=== PATIENT | female | born 1990 | race Asian ===

== ENCOUNTER → 2016-09-13 09:23 | Day surgery (SDC) | payer OTHER ==
--- NOTE | 2016-09-09 17:06 | HP ---
CC: Donis Chandler MD, at [facility]; [facility] PREOPERATIVE HISTORY AND PHYSICAL: DATE OF ADMISSION: 09/13/16 This patient is scheduled for same day surgery admission by Dr. Chandler on 09/13/16. ATTENDING SURGEON: Donis Chandler MD (dictated by Marilyn Flores NP). CHIEF COMPLAINT: Right breast lump and right breast skin lesion. 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 She is referred for both a right breast lump and a right breast skin lesion. The patient n otes that she initially found the breast lump in November 2015 while she was showering. She noted that t he mass was tender, but it has not changed significantly in size. She was seen by a breast surgeon in [place] and had an ultrasound at that time and was told it was a benign finding. She did not hav e a biopsy at that time. There was a recommendation for excision at that time. Currently, the mass has become more tender and she wishes to have it removed at this time. The patient also noted a sk in lesion on the right nipple areolar border at 3 o'clock which is not painful or itchy; however, sh e does sometimes pick at it and that has led to bleeding. She denies any personal or family history of breast cyst or breast cancer. There is no family history of ovarian cancer. The patient report s regular menstrual periods and previously used oral contraceptives for several months. The patient denies any nipple discharge. Dr. Chandler has examined the patient and on palpation of the right gita ast, there is an irregular, firm, mildly tender, 2 x 2 cm mobile mass at the 3 o'clock position. The re is also a raised skin lesion approximately 2 mm in size on the nipple-areolar complex of the righ t breast at the [address] Chandler has discussed the findings with the patient and rec ommended fine needle aspiration of the right breast mass which was completed and revealed fibroadeno ma on pathology. Dr. Chandler has recommended excision of the right breast mass and excision of the skin lesion on the right breast as a same day surgery procedure and has described the nature of the procedure, the rationale for the procedure, the relevants risks, benefits, and alternatives and pinky myles I reviewed the expected postoperative care and recovery. The patient has had a chance to ask ques tions and stated that she understands the information and is satisfied with the answers given to her questions. She will sign surgical consent on the day of surgery. PAST MEDICAL HISTORY: Generally healthy, no acute or chronic conditions. No previous surgery. OB HISTORY: 0. Last Pap smear, November 2015. Last menstrual period, 08/12/16. MEDICATIONS: None currently. ALLERGIES: No known drug allergies. FAMILY HISTORY: Both of her parents are alive and well and living in [place]. Her mother underwent t reatment for rectal cancer. No known anesthesia reactions, bleeding tendencies, or clotting disorde rs. SOCIAL HISTORY: She is single, she is a buttermilk drier operator at [employer] in system [place]. She is a nonsmoker and denies the use of alcohol or other substances. REVIEW OF SYSTEMS: She denies any recent constitutional symptoms. She has a good appetite and her weight is stable. She denies any cardiovascular conditions or complaints. She denies any respirato ry conditions or complaints and is a nonsmoker. She denies any history of deep vein thrombosis or p ulmonary embolism. She denies any bleeding tendencies and has never received a blood transfusion. S he denies any gastrointestinal conditions or complaints. She denies any genitourinary conditions or complaints. She denies any musculoskeletal conditions or complaints and denies any neurologic cond itions or complaints. PHYSICAL EXAMINATION GENERAL SURVEY: The patient is a 25-year-old female, well developed, well nourished in no acute dis tress. VITAL SIGNS: Height 67 inches, weight 125 pounds, body mass index 19.6. Blood pressure 104/66, pul se 88 and regular, respiratory rate 16, temperature 98.2 tympanic. HEENT: Benign. NECK: Supple. No cervical lymphadenopathy. No supraclavicular lymphadenopathy. BACK: No CVA tenderness. LUNGS: Breath sounds bilaterally clear and equal. BREASTS: On palpation of the right breast, there is an irregular, firm, mildly tender 2 x 2 cm mobi le mass at the 3 o'clock position. There is also a raised skin lesion at the 3 o'clock position, ri ght breast. There is no surrounding erythema, skin dimpling, or excoriation noted. Both nipples ar e everted. The left breast is dense. There is a palpable mass at the approximate 3 o'clock positio n that is mobile and feels like a cyst. No other discrete masses. No palpable lymphadenopathy in e ither axillary region. HEART: Regular rate and rhythm. No murmurs or rubs appreciated. ABDOMEN: Flat, soft. Active bowel sounds. Nontender throughout. No obvious masses. EXTREMITIES: Warm and nontender without edema or skin ulceration. PELVIC AND RECTAL: Exams deferred. NEUROLOGIC: Alert and oriented x3. Steady gait. SKIN: Warm, dry, intact. IMPRESSION: Right breast mass and skin lesion of right breast. PLAN: Same day surgery admission to Dr. Chandler' service on 09/13/16, for excision of righ t breast mass and excision of skin lesion right breast. CHERIE FLORES, FOREIGN LANGUAGE INSTRUCTOR [id number]/[facility] #: [id number]
[~2016-09-13 09:23] MED LIST: Buffered Lidocaine 1% SYRIN* 3 ML/SYR SYRINGE INTRADERM ONE; Bupivacaine 0.5% W/EPI SDV* 30 ML VIAL ONE; Dexamethasone IV* 4 MG/ML 1 ML (4 MG) IV SLOW PU ONE; Dexamethasone IV* 4 MG/ML 1 ML (4 MG) ONE; Famotidine IV* 10 MG/ML 2 ML (20 mg) IV ONE; Famotidine IV* 10 MG/ML 2 ML (20 mg) ONE; Lidocaine 1% INJ* 10 MG/ML 30 ML SDV ONE; Midazolam* 1 MG/ML 5 ML VIAL (5 MG) ONE; Ondansetron INJ* 2 MG/ML VIAL IV PRN; Ondansetron INJ* 2 MG/ML VIAL ONE; Propofol* 10 MG/ML 20 ML BTL IV PUSH ONE; ceFAZolin 2 GM PREMIX(*) 2 GM/50 ML BAG IVPB ONE; fentaNYL* 50 MCG/ML 2 ML VIAL (100 MCG VIAL) ONE; oxyCODONE/Acetamin 5/325 MG* TAB ONE; oxyCODONE/Acetamin 5/325 MG* TAB PO PRN
[2016-09-13 09:58] LABS: UR Preg Kit Lot# 6060104
[2016-09-13 09:59] LABS: Manual Entry Verification AS; UR Preg Internal Control QC Line Present
--- NOTE | 2016-09-13 12:00 | PN ---
Progress Note - Progress Note Note: Brief Operative Note: Pre and postop Dx: Right breast mass Procedure: Excision Right breast mass Anesthesia: local MAC Surgeon: Ramesh Asst: REGINA Zhou Fluids: 600ml RL EBL: < 50 ml Drains: none Specimen: Right breast mass Findings: dictated
[2016-09-13 12:47] VITALS: BP 116/69
--- NOTE | 2016-09-21 01:52 | OP ---
DATE OF OPERATION: 09/13/16 [facility] DATE OF : [birth year] SURGEON: Donis Chandler MD INSTRUCTOR DRAMATIC ARTS: REGINA Tolentino ANESTHESIOLOGIST: Fernando Smiht MD ANESTHESIA: Local MAC. PRE-OP DIAGNOSES: Right breast mass and right breast skin lesion. POST-OP DIAGNOSIS: OPERATIVE PROCEDURE: Excision of right breast mass and excision of skin lesion , right breast. ESTIMATED BLOOD LOSS: Minimal. IV FLUIDS: 600 mL of crystalloid. SPECIMENS: 1. Skin lesion, right breast. 2. Right breast mass. DRAINS: None. COMPLICATIONS: None. COUNTS: The instrument, needle, and sponge counts were correct. DESCRIPTION OF PROCEDURE: The patient was brought to the operating room and placed on the table supine. The right breast was prepped and draped in sterile fashion. The patient received intravenous sedation. Time-out was performed. Local anesthetic was infiltrated into the skin and soft tissue in the upper inner quadrant of the right breast along the areolar border, where the breast lesion was identified. A circumareolar incision was created with an ellipse of skin removed in order to excise the skin lesion, which was submitted to pathology separately with a stitch orienting the superior apex. The subcutaneous tissues divided with cautery. The breast mass, which was easily palpated and mobile, was transfixed with a suture, which was then used to elevate it out of the wound as the cautery was used to dissect out the mass. Once the mass was completely freed, it was submitted to pathology. Hemostasis was assured and then the wound was closed with 3-0 Polysorb for the subcutaneous tissue and 4-0 Monocryl for the skin edge. The Steri-Strips were applied. Dressing was applied. The patient tolerated the procedure well, was awakened, and transferred to recovery room in stable condition. CC: [facility]* [id number]/[facility] #: [id number] MTDD
== END | disposition home or self-care (01) ==
LOC: OR 09:23
PROVIDERS: ATTEND Surgery
DX: D24.1 Benign neoplasm of right breast (principal); L81.4 Other melanin hyperpigmentation; Z80.0 Family history of malignant neoplasm of digestive organs
CPT/HCPCS: 81025; 88305; 88307; A9270-GY; J0690; J1100; J2001; J2250; J2405; J2704; J3010